=== PATIENT | female | born 1995 | race Caucasian/White ===

== ENCOUNTER 2017-04-07 14:24 | Emergency (ER) | payer BC ==
[2017-04-07 14:50] VITALS: BP 107/58
--- NOTE | 2017-04-07 15:28 | EDM.PDOC ---
ED HPI GENERAL MEDICAL PROBLEM - General Chief Complaint: Genitourinary Problem Stated Complaint: BLADDER INFECTION Time Seen by Provider: 04/07/17 15:15 Source of Information: Reports: Patient History Limitations: Reports: No limitations - History of Present Illness INITIAL COMMENTS - FREE TEXT/NARRATIVE: HISTORY AND PHYSICAL: History of present illness: [Patient comes to emergency room complaining of urinary frequency and burning with urination. Her symptoms have been going on for the past one day. She has had low back discomfort bilaterally with radiation around to her lower abdomen. this started 3 days ago and has gradually improved. States that her pain was severe several days ago. Is significantly improved now. Denies back pain at this time. Admits to discomfort over her suprapubic area which also began this morning. she's been pushing fluids which she believes is contributing to her urinary frequency. She's not had any fever or chills. No decreased appetite nausea or vomiting. She has not noticed any blood in her urine. She does not have regular periods because she has an IUD. Denies any new sexual partners. No unusual vaginal discharge. She's not taken any medications for her symptoms. She admits to a history of frequent urinary tract infections and states that her current symptoms are just like previous UTI symptoms.] Review of systems: As per history of present illness and below otherwise all systems reviewed and negative. Past medical history: As per history of present illness and as reviewed below otherwise noncontributory. Surgical history: As per history of present illness and as reviewed below otherwise noncontributory. Social history: No reported history of drug or alcohol abuse. Family history: As per history of present illness and as reviewed below otherwise noncontributory. Physical exam: HEENT: Atraumatic, normocephalic. mucous membranes moist. Lungs: Clear to auscultation, breath sounds equal bilaterally, chest nontender. Heart: S1S2, regular, negative for clicks, rubs. Abdomen: Soft, nondistended. Tender with palpation over suprapubic area. Negative for costovertebral tenderness. No guarding masses or rebound. Pelvis: Stable nontender. Genitourinary: Deferred. Rectal: Deferred. Extremities: Atraumatic, no swelling. Neurovascular unremarkable. Neuro: Awake, alert, oriented. Motor and sensory unremarkable throughout. Exam nonfocal. Diagnostics: [Urinalysis] Impression: [Dysuria] Plan: [Discussed with patient that her urinalysis showed only a large amount of blood and does not indicate infection. Recommended patient have a CT scan for kidney stone for appropriate diagnosis. She declined stating that she is a single mom and she can't afford a CT scan. She requests an antibiotic stating that her current symptoms feel just like previous UTIs. We discussed options of CT versus not, antibiotic treatment versus. Patient would like to take the antibiotic for one week and states that she will followup in the emergency room if her symptoms are worsening or not improving. Discussed with patient that this is not an unreasonable plan. Will treat with Bactrim DS twice a day for 7 days. Encouraged her to followup with local primary care provider. She is in agreement with today's plan all of her questions are answered and concerns are addressed.] Definitive disposition and diagnosis as appropriate pending reevaluation and review of above. bladder and lower abdomen Pain Score (Numeric/FACES): 6 - Related Data Allergies Allergy/AdvReac Type Severity Reaction Status Date / Time No Known Allergies Allergy Verified 04/08/15 17:05 Home Meds: Home Meds Ethinyl Estradiol/Drospirenone [Ocella 3 MG-0.03 MG] 1 tab PO DAILY 04/08/15 [ History] Sulfamethoxazole/Trimethoprim [Bactrim Ds Tablet] 1 each PO BID #14 tablet 04/07 [Rx] Past Medical History [employer] History: Reports: - Past Surgical History Female Surgical History: Reports: section Social & Family History - Family History Family Medical History: Noncontributory - Tobacco Use Smoking Status *Q: Never Smoker Second Hand Smoke Exposure: No - Caffeine Use Caffeine Use: Reports: Coffee Other Caffeine Use: 3-4 cups per day - Recreational Drug Use Recreational Drug Use: No ED ROS GENERAL - Review of Systems Review Of Systems: ROS reveals no pertinent complaints other than HPI. ED EXAM, RENAL/ - Physical Exam Exam: See Below Course - Vital Signs Last Recorded V/S: Last Vital Signs Temp 97.6 F 04/07/17 14:44 Pulse 64 04/07/17 14:44 Resp 16 04/07/17 14:44 BP 107/58 L 04/07/17 14:44 Pulse Ox 98 04/07/17 14:44 - Orders/Labs/Meds Labs: Laboratory Tests 04/07/17 Range/Units 14:40 Urine Color YELLOW Urine Appearance CLEAR Urine pH 6.0 (5.0-8.0) Ur Specific [place] <= 1.005 (1.001-1.035) Urine Protein NEGATIVE (NEGATIVE) mg/dL Urine Glucose (UA) NEGATIVE (NEGATIVE) mg/dL Urine Ketones NEGATIVE (NEGATIVE) mg/dL Urine Occult Blood LARGE H (NEGATIVE) Urine Nitrite NEGATIVE (NEGATIVE) Urine Bilirubin NEGATIVE (NEGATIVE) Urine Urobilinogen 0.2 (<2.0) EU/dL Ur Leukocyte Esterase NEGATIVE (NEGATIVE) Urine RBC 4-5 (0-2/HPF) Urine WBC 0-1 (0-5/HPF) Ur Epithelial Cells RARE (NONE-FEW) Amorphous Sediment FEW (NEGATIVE) Urine Bacteria RARE (NEGATIVE) Departure - Departure Time of Disposition: 15:30 Disposition: Home, Self-Care 01 Condition: good Clinical Impression: UTI, Urinary tract infectious disease - Discharge Information Prescriptions: Sulfamethoxazole/Trimethoprim [Bactrim Ds Tablet] 1 each PO BID #14 tablet Instructions: Urinary Tract Infection, Adult Referrals: PCP,None [Primary Care Provider] - Forms: ED Department Discharge Additional Instructions: The following information is given to patients seen in the emergency department who are being discharged to home. This information is to outline your options for follow-up care. We provide all patients seen in our emergency department with a follow-up referral. The need for follow-up, as well as the timing and circumstances, are variable depending upon the specifics of your emergency department visit. If you don't have a primary care physician on staff, we will provide you with a referral. We always advise you to contact your personal physician following an emergency department visit to inform them of the circumstance of the visit and for follow-up with them and/or the need for any referrals to a consulting specialist. The emergency department will also refer you to a specialist when appropriate. This referral assures that you have the opportunity for follow-up care with a specialist. All of these measure are taken in an effort to provide you with optimal care, which includes your follow-up. Under all circumstances we always encourage you to contact your private physician who remains a resource for coordinating your care. When calling for follow-up care, please make the office aware that this follow-up is from your recent emergency room visit. If for any reason you are refused follow-up, please contact the [facility] emergency department at and asked to speak to the emergency department charge nurse. [facility] [address] [place] [id number] Establish care with a local primary care provider at the clinic listed above. Followup in 48-72 hours. Your prescription has been sent to your pharmacy. Take antibiotics as prescribed. Push fluids. Return to ER as needed as discussed.
== END 2017-04-07 15:50 | disposition home or self-care (01) ==
LOC: MERGE 14:24 → MW.ED 14:24
DX: N39.0 Urinary tract infection, site not specified (principal); Z79.899 Other long term (current) drug therapy
CPT/HCPCS: 81001; 99283

== ENCOUNTER → 2017-04-09 | Outpatient (CLI) | payer BC | LOC: MW.CHFP 15:51 | PROVIDERS: ATTEND Physician Assistant | DX: R10.2 Pelvic and perineal pain (principal); R30.0 Dysuria | CPT/HCPCS: 81001; 87086; 87480; 87491; 87510; 87591; 87660 ==

== ENCOUNTER 2017-05-05 08:43 | Emergency (ER) | payer BC ==
[2017-05-05] MEDS ORDERED: Ibuprofen 600 MG Tab PO ONE (09:06)
--- NOTE | 2017-05-05 09:25 | EDM.PDOC ---
ED HPI GENERAL MEDICAL PROBLEM - General Chief Complaint: ENT Problem Stated Complaint: SORE THROAT Time Seen by Provider: 05/05/17 08:47 Source of Information: Reports: Patient History Limitations: Reports: No Limitations - History of Present Illness INITIAL COMMENTS - FREE TEXT/NARRATIVE: History of present illness: [] Patient developed sore throat yesterday that has progressed rapidly. She has pain with swallowing is tolerating food and fluids. She denies having any fevers but states she has felt chilled. She also has ear pain at this time denies any cough, congestion, rash or chest pain. Review of systems: As per history of present illness and below otherwise all systems reviewed and negative. Past medical history: As per history of present illness and as reviewed below otherwise noncontributory. Surgical history: As per history of present illness and as reviewed below otherwise noncontributory. Social history: No reported history of drug or alcohol abuse. Family history: As per history of present illness and as reviewed below otherwise noncontributory. Physical exam: General: Well developed, well nourished in NAD HEENT: Atraumatic, normocephalic, pupils reactive, negative for conjunctival pallor or scleral icterus, mucous membranes moist, throat erythematous, no exudate, neck supple, nontender, trachea midline. No stridor Lungs: Clear to auscultation, breath sounds equal bilaterally, chest nontender. Heart: S1S2, regular, negative for clicks, rubs, or JVD. Abdomen: Soft, nondistended, nontender. Negative for masses or hepatosplenomegaly. Negative for costovertebral tenderness. Pelvis: Stable nontender. Genitourinary: Deferred. Rectal: Deferred. Extremities: Atraumatic, negative for cords or calf pain. Neurovascular unremarkable. Neuro: Awake, alert, oriented. Cranial nerves II through XII unremarkable. Cerebellum unremarkable. Motor and sensory unremarkable throughout. Exam nonfocal. Diagnostics: [] Rapid strep negative Therapeutics: [] Motrin for pain Impression: [] Acute pharyngitis Plan: [] Motrin for pain followup with PMD return if symptoms worsen Definitive disposition and diagnosis as appropriate pending reevaluation and review of above. Throat Pain Score (Numeric/FACES): 8 - Related Data Allergies Allergy/AdvReac Type Severity Reaction Status Date / Time No Known Allergies Allergy Verified 05/05/17 08:51 Home Meds: Home Meds . [No Known Home Meds] 05/05/17 [History] Past Medical History HEENT History: Reports: None Cardiovascular History: Reports: None Respiratory History: Reports: None Gastrointestinal History: Reports: None Genitourinary History: Reports: None AIR MARSHAL History: Reports: Musculoskeletal History: Reports: None Neurological History: Reports: None Psychiatric History: Reports: None Endocrine/Metabolic History: Reports: None Hematologic History: Reports: None Immunologic History: Reports: None Oncologic (Cancer) History: Reports: None Dermatologic History: Reports: None - Infectious Disease History Infectious Disease History: Reports: None - Past Surgical History Head Surgeries/Procedures: Reports: None HEENT Surgical History: Reports: None Cardiovascular Surgical History: Reports: None Respiratory Surgical History: Reports: None GI Surgical History: Reports: Appendectomy Female Surgical History: Reports: Breast Biopsy, Section Endocrine Surgical History: Reports: None Neurological Surgical History: Reports: None Musculoskeletal Surgical History: Reports: None Oncologic Surgical History: Reports: None Dermatological Surgical History: Reports: None Social & Family History - Family History Family Medical History: Noncontributory - Tobacco Use Smoking Status *Q: Never Smoker Second Hand Smoke Exposure: No - Caffeine Use Caffeine Use: Reports: None Other Caffeine Use: 3-4 cups per day - Alcohol Use Days Per Week of Alcohol Use: 0 - Recreational Drug Use Recreational Drug Use: No ED ROS ENT - Review of Systems Review Of Systems: See Below (See history of present illness) ED EXAM, ENT - Physical Exam Exam: See Below (See history of present illness see history of present illness) Course - Vital Signs Last Recorded V/S: Last Vital Signs Temp 36.6 C 05/05/17 08:46 Pulse 99 05/05/17 08:46 Resp 16 05/05/17 08:46 BP 129/72 05/05/17 08:46 Pulse Ox 99 05/05/17 08:46 - Orders/Labs/Meds Orders: Active Orders 24 hr Category Date Time Status CULTURE STREP A CONFIRMATION [RM] Stat Lab 05/05/17 08:59 Results STREP SCRN A RAPID W CULT CONF [RM] Stat Lab 05/05/17 08:59 Results Meds: Medications Discontinued Medications Generic Name Dose Route Start Last Admin Trade Name Freq PRN Reason Stop Dose Admin Ibuprofen 600 mg 05/05/17 09:06 05/05/17 09:18 Motrin PO 05/05/17 09:07 600 mg ONETIME ONE Administration Departure - Departure Time of Disposition: 09:24 Disposition: Home, Self-Care 01 Condition: good Clinical Impression: Acute pharyngitis Qualifiers: Pharyngitis/tonsillitis etiology: unspecified etiology Qualified Code(s): J02.9 - Acute pharyngitis, unspecified - Discharge Information Forms: ED Department Discharge Additional Instructions: The following information is given to patients seen in the emergency department who are being discharged to home. This information is to outline your options for follow-up care. We provide all patients seen in our emergency department with a follow-up referral. The need for follow-up, as well as the timing and circumstances, are variable depending upon the specifics of your emergency department visit. If you don't have a primary care physician on staff, we will provide you with a referral. We always advise you to contact your personal physician following an emergency department visit to inform them of the circumstance of the visit and for follow-up with them and/or the need for any referrals to a consulting specialist. The emergency department will also refer you to a specialist when appropriate. This referral assures that you have the opportunity for follow-up care with a specialist. All of these measure are taken in an effort to provide you with optimal care, which includes your follow-up. Under all circumstances we always encourage you to contact your private physician who remains a resource for coordinating your care. When calling for follow-up care, please make the office aware that this follow-up is from your recent emergency room visit. If for any reason you are refused follow-up, please contact the [facility] Emergency Department at and asked to speak to the emergency department charge nurse. Motrin or Tylenol for pain. Follow up PMD return here if any symptoms worsen or change. [facility] [address] [place] [id number] - My Orders Last 24 Hours: My Active Orders 05/05/17 08:59 CULTURE STREP A CONFIRMATION [] Stat STREP SCRN A RAPID W CULT CONF [RM] Stat - Assessment/Plan Last 24 Hours: My Active Orders 05/05/17 08:59 CULTURE STREP A CONFIRMATION [RM] Stat STREP SCRN A RAPID W CULT CONF [RM] Stat
[2017-05-05 09:35] VITALS: BP 118/66
== END 2017-05-05 09:33 | disposition home or self-care (01) ==
LOC: MW.ED 08:43
DX: J02.9 Acute pharyngitis, unspecified (principal); Z90.49 Acquired absence of other specified parts of digestive tract
CPT/HCPCS: 87081; 87880; 99283; A9270; 99282

== ENCOUNTER 2018-07-18 16:31 | Emergency (ER) | payer BC, MEDICAID ==
--- NOTE | 2018-07-18 16:40 | EDM.PDOC ---
ED HPI GENERAL MEDICAL PROBLEM - General Stated Complaint: THINKS SHE IS MISCARRYING Time Seen by Provider: 07/18/18 16:36 Source of Information: Reports: Patient History Limitations: Reports: No Limitations - History of Present Illness INITIAL COMMENTS - FREE TEXT/NARRATIVE: HISTORY AND PHYSICAL: History of present illness: Patient is a 22-year-old female who presents to the emergency room with complaints of vaginal bleeding during . She states she had gone to her regular OB appointment with Leslee Gordon this morning, had no complaints at that time. Prior to arrival she said she "felt like my water broke" and did have a gush of blood from the vagina. She has dull cramping to the low pelvis and nausea. Denies any fever, chills, chest pain, shortness of breath or cough. Denies any abdominal pain, vomiting, diarrhea, constipation or dysuria. LMP: April 25, 2018. , P:2 (previous miscarriages early ). Review of systems: As per history of present illness and below otherwise all systems reviewed and negative. Past medical history: As per history of present illness and as reviewed below otherwise noncontributory. Surgical history: As per history of present illness and as reviewed below otherwise noncontributory. Social history: No reported history of drug or alcohol abuse. Family history: As per history of present illness and as reviewed below otherwise noncontributory. Physical exam: General: Well-developed and well-nourished 22-year-old female. Alert and oriented. Nontoxic appearing and in no acute distress. HEENT: Atraumatic, normocephalic, pupils equal and reactive bilaterally, negative for conjunctival pallor or scleral icterus, mucous membranes moist, throat clear, neck supple, nontender, trachea midline. No drooling or trismus noted. No meningeal signs Lungs: Clear to auscultation, breath sounds equal bilaterally, chest nontender. Heart: S1S2, regular rate and rhythm without overt murmur Abdomen: Soft, nondistended, mild suprapubic discomfort with palpation. Negative for masses or hepatosplenomegaly. Negative for costovertebral tenderness. Pelvis: Stable nontender. Genitourinary: Deferred. Rectal: Deferred. Skin: Intact, warm, dry. No lesions or rashes noted. Extremities: Atraumatic, moves all extremities per self, negative for cords or calf pain. Neurovascular unremarkable. Neuro: Awake, alert, oriented. Cranial nerves II through XII unremarkable. Cerebellum unremarkable. Motor and sensory unremarkable throughout. Exam nonfocal. Notes: Patient did see the nurse creative specialist this morning for routine OB appointment. During that time they did some labs. A POSITIVE blood type. UA is within normal limits, will not re-run an urinalysis at this time. Initially patient was offered Zofran and Tylenol for her symptoms. She declined. After the ultrasound she would like the Tylenol/Zofran. Lab work is unremarkable. Quant HCG 68,981. OB ultrasound shows a single IUP with a estimated gestational age of 12 weeks and 4 days. Does note a large subchorionic hemorrhage. Leslee Gordon was paged. She is informed of the patient's presentation to the ER along with the ultrasound reading. Diagnostics: CBC, CMP, Quant HCG, OB ultrasounds Therapeutics: Declines Prescription: None Impression: Threatened miscarriage Plan: 1. Pelvic rest until cleared by your OBGYN (no sex, tampons, etc...) 2. Tylenol as needed for pain. 3. Follow up with Leslee Diasd tomorrow. You will need a repeat Quantitative HCG done. Return to the ED as needed as discussed. Definitive disposition and diagnosis as appropriate pending reevaluation and review of above. - Related Data Allergies Allergy/AdvReac Type Severity Reaction Status Date / Time No Known Allergies Allergy Verified 07/18/18 16:42 Home Meds: Home Meds Vit #108/Iron/FA [ One Tablet] 1 tab PO DAILY 07/18/18 [History ] Past Medical History HEENT History: Reports: None Cardiovascular History: Reports: None Respiratory History: Reports: None Gastrointestinal History: Reports: None Genitourinary History: Reports: None CHECK CASHIER History: Reports: Musculoskeletal History: Reports: None Neurological History: Reports: None Psychiatric History: Reports: None Endocrine/Metabolic History: Reports: None Hematologic History: Reports: None Immunologic History: Reports: None Oncologic (Cancer) History: Reports: None Dermatologic History: Reports: None - Infectious Disease History Infectious Disease History: Reports: None - Past Surgical History Head Surgeries/Procedures: Reports: None HEENT Surgical History: Reports: None Cardiovascular Surgical History: Reports: None Respiratory Surgical History: Reports: None GI Surgical History: Reports: Appendectomy Female Surgical History: Reports: Breast Biopsy, Section Endocrine Surgical History: Reports: None Neurological Surgical History: Reports: None Musculoskeletal Surgical History: Reports: None Oncologic Surgical History: Reports: None Dermatological Surgical History: Reports: None Social & Family History - Family History Family Medical History: Noncontributory - Caffeine Use Caffeine Use: Reports: None Other Caffeine Use: 3-4 cups per day ED ROS GENERAL - Review of Systems Review Of Systems: ROS reveals no pertinent complaints other than HPI. ED EXAM - Physical Exam Exam: See Below (See dictation) Course - Vital Signs Last Recorded V/S: Last Vital Signs Temp 98.0 F 07/18/18 16:39 Pulse 126 H 07/18/18 16:39 Resp 18 07/18/18 16:39 BP 149/80 H 07/18/18 16:39 Pulse Ox 95 07/18/18 16:39 - Orders/Labs/Meds Labs: Laboratory Tests 07/18/18 07/18/18 07/18/18 Range/Units 16:45 16:45 16:45 WBC 9.95 (4.0-11.0) K/uL RBC 4.94 (4.30-5.90) M/uL Hgb 14.4 (12.0-16.0) g/dL Hct 40.9 (36.0-46.0) % MCV 82.8 (80.0-98.0) fL MCH 29.1 (27.0-32.0) pg MCHC 35.2 (31.0-37.0) g/dL RDW Std Deviation 38.0 (28.0-62.0) fl RDW Coeff of Chantell 13 (11.0-15.0) % Plt Count 220 (150-400) K/uL MPV 9.60 (7.40-12.00) fL Neut % (Auto) 72.4 (48.0-80.0) % Lymph % (Auto) 14.6 L (16.0-40.0) % Nuckolls % (Auto) 11.3 (0.0-15.0) % Eos % (Auto) 1.5 (0.0-7.0) % Baso % (Auto) 0.2 (0.0-1.5) % Neut # (Auto) 7.2 H (1.4-5.7) K/uL Lymph # (Auto) 1.5 (0.6-2.4) K/uL Nuckolls # (Auto) 1.1 H (0.0-0.8) K/uL Eos # (Auto) 0.2 (0.0-0.7) K/uL Baso # (Auto) 0.0 (0.0-0.1) K/uL Nucleated RBC % 0.0 /100WBC Nucleated RBCs # 0 K/uL Sodium 136 (136-145) mmol/L Potassium 3.5 (3.5-5.1) mmol/L Chloride 103 (98-107) mmol/L Carbon Dioxide 22.1 (21.0-32.0) mmol/L BUN 8 (7.0-18.0) mg/dL Creatinine 0.6 (0.6-1.0) mg/dL Est Cr Clr Drug Dosing 132.34 mL/min Estimated GFR (MDRD) > 60.0 ml/min Glucose 107 H (74-106) mg/dL Calcium 10.4 H (8.5-10.1) mg/dL Total Bilirubin 0.3 (0.2-1.0) mg/dL AST 16 (15-37) IU/L ALT 26 (14-63) IU/L Alkaline Phosphatase 69 (46-116) U/L Total Protein 7.7 (6.4-8.2) g/dL Albumin 3.5 (3.4-5.0) g/dL Globulin 4.2 H (2.0-3.5) g/dL Albumin/Globulin Ratio 0.8 L (1.3-2.8) HCG, Quant 62934.0 mIU/mL Meds: Medications Discontinued Medications Generic Name Dose Route Start Last Admin Trade Name Freq PRN Reason Stop Dose Admin Acetaminophen 1,000 mg 07/18/18 17:42 07/18/18 17:48 Tylenol Extra Strength PO 07/18/18 17:43 1,000 mg ONETIME ONE Administration Ondansetron HCl 4 mg 07/18/18 17:51 07/18/18 17:54 Zofran Odt PO 07/18/18 17:52 4 mg ONETIME ONE Administration Departure - Departure Time of Disposition: 18:04 Disposition: Home, Self-Care 01 Clinical Impression: Threatened miscarriage - Discharge Information Instructions: Threatened Miscarriage, Aeks-[id number] Referrals: PCP,None [Primary Care Provider] - Forms: ED Department Discharge Additional Instructions: The following information is given to patients seen in the emergency department who are being discharged to home. This information is to outline your options for follow-up care. We provide all patients seen in our emergency department with a follow-up referral. The need for follow-up, as well as the timing and circumstances, are variable depending upon the specifics of your emergency department visit. If you don't have a primary care physician on staff, we will provide you with a referral. We always advise you to contact your personal physician following an emergency department visit to inform them of the circumstance of the visit and for follow-up with them and/or the need for any referrals to a consulting specialist. The emergency department will also refer you to a specialist when appropriate. This referral assures that you have the opportunity for follow-up care with a specialist. All of these measure are taken in an effort to provide you with optimal care, which includes your follow-up. Under all circumstances we always encourage you to contact your private physician who remains a resource for coordinating your care. When calling for follow-up care, please make the office aware that this follow-up is from your recent emergency room visit. If for any reason you are refused follow-up, please contact the [facility] Emergency Department at and asked to speak to the emergency department charge nurse. [facility] [address] [place] [phone] 1. Pelvic rest until cleared by your OBGYN (no sex, tampons, etc...) 2. Tylenol as needed for pain. 3. Follow up with Leslee Gordon tomorrow. You will need a repeat Quantitative HCG done. Return to the ED as needed as discussed.
[2018-07-18 16:45] VITALS: BP 149/80
[2018-07-18 17:36] LABS: CHLORIDE,CL 103 mmol/L (98-107); SODIUM,NA 136 mmol/L (136-145)
[2018-07-18] MEDS ORDERED: Acetaminophen 500 MG Tab PO ONE (17:42)
[2018-07-18] MEDS ORDERED: Ondansetron 4 MG Tab.DIS PO ONE (17:51)
--- NOTE | 2018-07-18 18:27 | US ---
EXAM DATE: 07/18/18 PATIENT'S AGE: 22 Patient: JOE OLIVARES Facility: [place], [place] Site . Site : 1995 Study: US OB Pelvis [id number] 5:13:53 PM Ordering Physician: Doctor Coon Final Report: HISTORY: Vaginal bleeding and . TECHNIQUE: Transabdominal obstetrical ultrasound. COMPARISON: None. FINDINGS: Single intrauterine gestation. [place]-rump length of 6.1 cm corresponds to estimated gestational age 12 weeks 4 days. cardiac activity is present with heart rate 161-163 beats per minute. Perigestational collection measuring 6.4 x 5.7 x 7.5 cm with diffuse low level internal echoes. Within the central aspect of this collection is a hyperechoic 2.7 x 1.9 x 1.5 cm focus. No color Doppler signal within this collection. IMPRESSION: 1. Single live intrauterine gestation with estimated gestational age 12 weeks 4 days. 2. Large subchorionic hemorrhage. Dictated by Louis Vizcaino MD @ Jul 18 2018 5:42PM (Electronic Signature) Report Signed by Proxy. NILAY
== END 2018-07-18 18:30 | disposition home or self-care (01) ==
LOC: MW.ED 16:31
DX: O20.0 Threatened abortion (principal)
CPT/HCPCS: 36415; 76801; 80053; 84702; 85025; 99284; A9270; 99283

== ENCOUNTER 2018-09-03 17:20 | Emergency (ER) | payer BC, MEDICAID ==
--- NOTE | 2018-09-03 17:50 | EDM.PDOC ---
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 She states she fell yesterday onto her right hip which is walking outside in the slow and slipped. She states yesterday she felt achy but today started developing pelvic cramping. She denies any vaginal bleeding or discharge. She denies any chest pain, SOB, fevers, chills, dysuria. She states it feels similar to how she felt before her water broke with her previous . Review of systems: As per history of present illness and below otherwise all systems reviewed and negative. Past medical history: As per history of present illness and as reviewed below otherwise noncontributory. Surgical history: As per history of present illness and as reviewed below otherwise noncontributory. Social history: No reported history of drug or alcohol abuse. Family history: As per history of present illness and as reviewed below otherwise noncontributory. Physical exam: General: Patient sitting comfortably in no acute distress and nontoxic appearing HEENT: Atraumatic, normocephalic, pupils reactive, negative for conjunctival pallor or scleral icterus, mucous membranes moist, throat clear, neck supple, nontender, trachea midline. No meningeal signs. Lungs: Clear to auscultation, breath sounds equal bilaterally, chest nontender. Heart: S1S2, regular, negative for clicks, rubs, or overt murmur. Abdomen: Soft, nondistended, nontender. Negative for masses or hepatosplenomegaly. Negative for costovertebral tenderness. Pelvis: Stable nontender. Genitourinary: cervical os is closed, no cervical motion tenderness. No vaginal bleeding noted. Rectal: Deferred. Extremities: Atraumatic, negative for cords or calf pain. Neurovascular unremarkable. Neuro: Awake, alert, oriented. Cranial nerves II through XII unremarkable. Cerebellum unremarkable. Motor and sensory unremarkable throughout. Exam nonfocal. Notes: Discussed results with her OB Leslee Gordon. She will follow up with patient in the clinic on Mic morning. Diagnostics: CBC, serum quant, US Therapeutics: None Prescriptions: None Impression: Pelvic pain in Plan: 1. Pelvic rest and tylenol as needed for pain 2. Follow up with OB, please call Wednesday to schedule this appointment 3. Return to ED as needed as discussed Definitive disposition and diagnosis as appropriate pending reevaluation and review of above. 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 History: benign cyst removed from R breast Musculoskeletal History: Reports: None Neurological History: Reports: None Psychiatric History: Reports: None Endocrine/Metabolic History: Reports: None Hematologic History: Reports: None Immunologic History: Reports: None Oncologic (Cancer) History: Reports: None Dermatologic History: Reports: None - Infectious Disease History Infectious Disease History: Reports: None - Past Surgical History Head Surgeries/Procedures: Reports: None HEENT Surgical History: Reports: None Cardiovascular Surgical History: Reports: None Respiratory Surgical History: Reports: None GI Surgical History: Reports: Appendectomy Female Surgical History: Reports: Breast Biopsy, Section Endocrine Surgical History: Reports: None Neurological Surgical History: Reports: None Musculoskeletal Surgical History: Reports: None Oncologic Surgical History: Reports: None Dermatological Surgical History: Reports: None Social & Family History - Family History Family Medical History: Noncontributory - Caffeine Use Caffeine Use: Reports: None Other Caffeine Use: 3-4 cups per day ED ROS GENERAL - Review of Systems Review Of Systems: ROS reveals no pertinent complaints other than HPI. ED EXAM - Physical Exam Exam: See Below (see dictation) Course - Vital Signs Last Recorded V/S: Last Vital Signs Temp 37.0 C 09/03/18 17:53 Pulse 93 09/03/18 17:53 Resp 16 09/03/18 17:53 BP 113/77 09/03/18 17:53 Pulse Ox 97 09/03/18 17:53 - Orders/Labs/Meds Orders: Active Orders 24 hr Category Date Time Status OB Ltd 1 or More Fetus [US] Routine Exams 09/03/18 Taken OB Transvaginal [US] Stat Exams 09/03/18 17:48 Taken CULTURE URINE [RM] Stat Lab 09/03/18 18:05 Received Labs: Laboratory Tests 09/03/18 09/03/18 09/03/18 Range/Units 17:57 17:57 18:05 WBC 12.47 H (4.0-11.0) K/uL RBC 4.54 (4.30-5.90) M/uL Hgb 13.1 (12.0-16.0) g/dL Hct 38.4 (36.0-46.0) % MCV 84.6 (80.0-98.0) fL MCH 28.9 (27.0-32.0) pg MCHC 34.1 (31.0-37.0) g/dL RDW Std Deviation 40.5 (28.0-62.0) fl RDW Coeff of [place] 13 (11.0-15.0) % Plt Count 216 (150-400) K/uL MPV 9.90 (7.40-12.00) fL Neut % (Auto) 75.9 (48.0-80.0) % Lymph % (Auto) 15.3 L (16.0-40.0) % [place] % (Auto) 8.1 (0.0-15.0) % Eos % (Auto) 0.6 (0.0-7.0) % Baso % (Auto) 0.1 (0.0-1.5) % Neut # (Auto) 9.5 H (1.4-5.7) K/uL Lymph # (Auto) 1.9 (0.6-2.4) K/uL [place] # (Auto) 1.0 H (0.0-0.8) K/uL Eos # (Auto) 0.1 (0.0-0.7) K/uL Baso # (Auto) 0.0 (0.0-0.1) K/uL Nucleated RBC % 0.0 /100WBC Nucleated RBCs # 0 K/uL HCG, Quant 62397.0 mIU/mL Urine Color YELLOW Urine Appearance CLEAR Urine pH 7.5 (5.0-8.0) Ur Specific [place] 1.020 (1.001-1.035) Urine Protein NEGATIVE (NEGATIVE) mg/dL Urine Glucose (UA) NEGATIVE (NEGATIVE) mg/dL Urine Ketones NEGATIVE (NEGATIVE) mg/dL Urine Occult Blood NEGATIVE (NEGATIVE) Urine Nitrite NEGATIVE (NEGATIVE) Urine Bilirubin NEGATIVE (NEGATIVE) Urine Urobilinogen 0.2 (<2.0) EU/dL Ur Leukocyte Esterase NEGATIVE (NEGATIVE) Urine RBC 0-1 (0-2/HPF) Urine WBC 1-3 (0-5/HPF) Ur Epithelial Cells OCCASIONAL (NONE-FEW) Urine Bacteria FEW (NEGATIVE) Urine Mucus RARE (NONE-MOD) Departure - Departure Time of Disposition: 19:25 Disposition: Home, Self-Care 01 Condition: Good Clinical Impression: Pelvic pain affecting - Discharge Information Referrals: Inna Kline NP [Primary Care Provider] - Forms: ED Department Discharge Additional Instructions: The following information is given to patients seen in the emergency department who are being discharged to home. This information is to outline your options for follow-up care. We provide all patients seen in our emergency department with a follow-up referral. The need for follow-up, as well as the timing and circumstances, are variable depending upon the specifics of your emergency department visit. If you don't have a primary care physician on staff, we will provide you with a referral. We always advise you to contact your personal physician following an emergency department visit to inform them of the circumstance of the visit and for follow-up with them and/or the need for any referrals to a consulting specialist. The emergency department will also refer you to a specialist when appropriate. This referral assures that you have the opportunity for follow-up care with a specialist. All of these measure are taken in an effort to provide you with optimal care, which includes your follow-up. Under all circumstances we always encourage you to contact your private physician who remains a resource for coordinating your care. When calling for follow-up care, please make the office aware that this follow-up is from your recent emergency room visit. If for any reason you are refused follow-up, please contact the [facility] Emergency Department at and asked to speak to the emergency department charge nurse. [facility] [address] [address] 1. Pelvic rest and tylenol as needed for pain 2. Follow up with OB, please call Wednesday morning to schedule this appointment 3. Return to ED as needed as discussed - My Orders Last 24 Hours: My Active Orders 09/03/18 17:48 OB Transvaginal [US] Stat 09/03/18 18:05 CULTURE URINE [RM] Stat - Assessment/Plan Last 24 Hours: My Active Orders 09/03/18 17:48 OB Transvaginal [US] Stat 09/03/18 18:05 CULTURE URINE [RM] Stat
[2018-09-03 19:35] VITALS: BP 110/63
--- NOTE | 2018-09-05 14:25 | US ---
EXAM DATE: 09/03/18 PATIENT'S AGE: 23 Patient: JOE OLIVARES Facility: [place], [place] Site . Site : 1995 Study: US OB Pelvis [id number] 6:58:30 PM Ordering Physician: Doctor Coon Final Report: INDICATION: PT FELL 09/02/18 HISTORY: Recent fall. Large subchorionic hemorrhage on prior ultrasound. COMPARISON: obstetric ultrasound 07/18/2018. TECHNIQUE: obstetric ultrasound. Findings: Transabdominal and endovaginal imaging of the pelvis was obtained. Endovaginal imaging of the pelvis was obtained to better evaluate the adnexa and endometrial complex. There is a single living intrauterine fetus. Presentation is currently breech. There is a posterior placenta. No placenta previa is identified. Subjectively, amniotic fluid volume is within normal limits. Cardiac activity by M-mode ultrasound is 154 beats per minute. The cervix appears closed, measuring 4.1 cm in length. There is no prolapse of parts or funneling. There is a mixed echogenicity mass present adjacent to the lower uterine segment which measures 6.2 x 3.9 x 5.5 cm. This is compatible with a perigestational hematoma. Finding was present on the prior study from 07/18/2018. Measurements are as follows: Biparietal diameter: 44 mm, corresponding to a gestational age of 19 weeks, 3 days. Head circumference: 165 mm, corresponding to a gestational age of 19 weeks, 2 days. Abdominal circumference: 152 mm, corresponding to a gestational age of 20 weeks , 3 days. Femur length: 30 mm, corresponding to a gestational age of 19 weeks, 1 day. The HC/AC ratio is 1.09. The normal range is 1.07 to 1.29. Estimated weight is 309 g (+/- 45 g). This places the fetus at the 90th percentile per LMP. The ultrasound gestational age today is 19 weeks, 4 days, corresponding to an ultrasound ALIREZA of 01/24/2019. IMPRESSION: 1. Single living intrauterine fetus, with an ultrasound gestational age today of 19 weeks, 4 days, corresponding to an ultrasound ALIREZA of 01/24/2019. 2. Mixed echogenicity collection adjacent to the lower uterine segment, without blood flow. This compatible with a perigestational hematoma, and similar findings were present on the study from 07/18/2018. On the comparison study from 07/18/2018, the collection measures 6.4 x 5.7 x 7.5 cm. 3. Clinical and sonographic follow-up are advised for these findings. 4. There is no retroplacental hematoma identified on grayscale images. Dictated by Fawad Alejandre MD @ 09/03/2018 7:16:08 PM Dictated by: Fawad Alejandre MD @ 09/03/2018 19:16:20 (Electronic Signature) Report Signed by Proxy. NILAY
--- NOTE | 2018-09-05 14:26 | US ---
EXAM DATE: 09/03/18 PATIENT'S AGE: 23 Patient: JOE OLIVARES Facility: [place], [place] Site . Site : 1995 Study: US OB Pelvis [id number] 6:58:30 PM Ordering Physician: Doctor Coon Final Report: INDICATION: PT FELL 09/02/18 HISTORY: Recent fall. Large subchorionic hemorrhage on prior ultrasound. COMPARISON: obstetric ultrasound 07/18/2018. TECHNIQUE: obstetric ultrasound. Findings: Transabdominal and endovaginal imaging of the pelvis was obtained. Endovaginal imaging of the pelvis was obtained to better evaluate the adnexa and endometrial complex. There is a single living intrauterine fetus. Presentation is currently breech. There is a posterior placenta. No placenta previa is identified. Subjectively, amniotic fluid volume is within normal limits. Cardiac activity by M-mode ultrasound is 154 beats per minute. The cervix appears closed, measuring 4.1 cm in length. There is no prolapse of parts or funneling. There is a mixed echogenicity mass present adjacent to the lower uterine segment which measures 6.2 x 3.9 x 5.5 cm. This is compatible with a perigestational hematoma. Finding was present on the prior study from 07/18/2018. Measurements are as follows: Biparietal diameter: 44 mm, corresponding to a gestational age of 19 weeks, 3 days. Head circumference: 165 mm, corresponding to a gestational age of 19 weeks, 2 days. Abdominal circumference: 152 mm, corresponding to a gestational age of 20 weeks , 3 days. Femur length: 30 mm, corresponding to a gestational age of 19 weeks, 1 day. The HC/AC ratio is 1.09. The normal range is 1.07 to 1.29. Estimated weight is 309 g (+/- 45 g). This places the fetus at the 90th percentile per LMP. The ultrasound gestational age today is 19 weeks, 4 days, corresponding to an ultrasound ALIREZA of 01/24/2019. IMPRESSION: 1. Single living intrauterine fetus, with an ultrasound gestational age today of 19 weeks, 4 days, corresponding to an ultrasound ALIREZA of 01/24/2019. 2. Mixed echogenicity collection adjacent to the lower uterine segment, without blood flow. This compatible with a perigestational hematoma, and similar findings were present on the study from 07/18/2018. On the comparison study from 07/18/2018, the collection measures 6.4 x 5.7 x 7.5 cm. 3. Clinical and sonographic follow-up are advised for these findings. 4. There is no retroplacental hematoma identified on grayscale images. Dictated by Fawad Alejandre MD @ 09/03/2018 7:16:08 PM Dictated by: Fawad Alejandre MD @ 09/03/2018 19:16:20 (Electronic Signature) Report Signed by Proxy. NILAY
== END 2018-09-03 19:35 | disposition home or self-care (01) ==
LOC: MW.ED 17:20
DX: O26.892 Other specified pregnancy related conditions, second trimester (principal); Z3A.19 19 weeks gestation of pregnancy
CPT/HCPCS: 36415; 76815; 76815-26; 76817; 76817-26; 81001; 84702; 85025; 87086; 99283; 99284-25

== ENCOUNTER 2018-09-03 23:41 | Emergency (ER) | payer MEDICAID ==
--- NOTE | 2018-09-04 00:02 | EDM.PDOC ---
ED HPI GENERAL MEDICAL PROBLEM - General Stated Complaint: 19 WEEKS PREG, CRAMPING, BLEEDING Time Seen by Provider: 09/03/18 23:58 - History of Present Illness INITIAL COMMENTS - FREE TEXT/NARRATIVE: HISTORY AND PHYSICAL: History of present illness: The patient is a 23-year-old female who is approximately 19 weeks 4days by an ultrasound that was just performed this evening, and who is a 3 para 2001, presents again for reevaluation for persistent cramping and now vaginal bleeding. Patient says that she was cramping earlier today but she did not have the bleeding and it just started this evening and she was concerned. She says that she had a subchorionic hemorrhage at 14 weeks gestational age and it lasted for a week but there was no cramping with that. She is worried and wants reevaluation. She has no flank pain and no urinary complaints no upper abdominal pain and her cramping is the entire lower pelvic area and does not localize right or left. She has not had a fever but is nauseated. She has had normal bowel movements and is eating and drinking normally. There is nothing new about the cramping but now with the new bleeding she wanted evaluation. SHe has been taking Tylenol all day and when the bleeding started late this evening she has not been bleeding heavily and has only used less than one pad. The patient's was seen here and discharge proximally 4 hours ago and had a CBC serum quantitative hCG UA pelvic ultrasound. I reviewed all those test results. Pelvic ultrasound revealed a single living intrauterine corresponding to 19 weeks 4 days and a good heart rate as well as normal amniotic fluid. There appear to be some mixed echogenicity in the lower uterine segment without blood flow compatible with a bimal-gestational hematoma and similar findings were present on a prior study from July 18. The placenta is posterior and there is no previa. Baby's heartbeat was 154 and cervix was closed. On physical exam on the prior visit he cervix was also closed and there was no bleeding. Leslee Novoa the patient's nurse civil engineering specialist was contacted about this case on the prior visit. Review of systems: As per history of present illness and below otherwise all systems reviewed and negative. Past medical history: As per history of present illness and as reviewed below otherwise noncontributory. Surgical history: As per history of present illness and as reviewed below otherwise noncontributory. Social history: No reported history of drug or alcohol abuse. Family history: As per history of present illness and as reviewed below otherwise noncontributory. Physical exam: General: Well-developed well-nourished female who is nontoxic and vital signs have been reviewed by me HEENT: Atraumatic, normocephalic, negative for conjunctival pallor or scleral icterus, mucous membranes moist, throat clear, neck supple, nontender, trachea midline. Lungs: Clear to auscultation, breath sounds equal bilaterally, chest nontender. Heart: S1S2, regular rate and rhythm no overt murmurs. Abdomen: Soft, nondistended, nontender. The patient has some diffuse lower pelvic discomfort with palpation which is bilateral and not localized and there is no rebound or guarding. Negative for masses or hepatosplenomegaly. Negative for costovertebral tenderness. Pelvis: Stable nontender. Genitourinary: External genitalia are within normal limits and there is a small amount of dark blood in the vault. The cervix is visually closed and there is no active bleeding process. Rectal: Deferred. Extremities: Atraumatic, negative for cords or calf pain. Neurovascular unremarkable. Neuro: Awake, alert, oriented. Cranial nerves II through XII unremarkable. Cerebellum unremarkable. Motor and sensory unremarkable throughout. Exam nonfocal. Diagnostics: CBC UA and Quant hCG as well as ultrasound performed earlier this evening were reviewed by me. The patient has unknown blood type of A+ from prior delivery here Therapeutics: Case was discussed with Leslee Novoa a second time at 0027. She recommends one dose of Stadol or Nubain here in the ED to help her get some rest and close follow-up in the clinic. Impression: Bimal-gestational hematoma/vaginal bleeding in second trimester stable , pelvic cramping Definitive disposition and diagnosis as appropriate pending reevaluation and review of above. 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 removed from R breast Musculoskeletal History: Reports: None Neurological History: Reports: None Psychiatric History: Reports: None Endocrine/Metabolic History: Reports: None Hematologic History: Reports: None Immunologic History: Reports: None Oncologic (Cancer) History: Reports: None Dermatologic History: Reports: None - Infectious Disease History Infectious Disease History: Reports: None - Past Surgical History Head Surgeries/Procedures: Reports: None HEENT Surgical History: Reports: None Cardiovascular Surgical History: Reports: None Respiratory Surgical History: Reports: None GI Surgical History: Reports: Appendectomy Female Surgical History: Reports: Breast Biopsy, Section Endocrine Surgical History: Reports: None Neurological Surgical History: Reports: None Musculoskeletal Surgical History: Reports: None Oncologic Surgical History: Reports: None Dermatological Surgical History: Reports: None Social & Family History - Family History Family Medical History: Noncontributory - Caffeine Use Caffeine Use: Reports: None Other Caffeine Use: 3-4 cups per day ED ROS GENERAL - Review of Systems Review Of Systems: ROS reveals no pertinent complaints other than HPI. ED EXAM, GENERAL - Physical Exam Exam: See Below (See dictation) Course - Vital Signs Last Recorded V/S: Last Vital Signs Temp 36.4 C 09/03/18 23:58 Pulse 104 H 09/03/18 23:58 Resp 18 09/03/18 23:58 BP 133/80 09/03/18 23:58 Pulse Ox 97 09/03/18 23:58 Departure - Departure Time of Disposition: 00:30 Disposition: Home, Self-Care 01 Condition: Good Clinical Impression: Vaginal bleeding during , antepartum Pelvic pain affecting Qualifiers: Trimester: second trimester Qualified Code(s): O26.892 - Other specified related conditions, second trimester; R10.2 - Pelvic and perineal pain - Discharge Information Referrals: Inna Kline NP [Primary Care Provider] - Additional Instructions: The following information is given to patients seen in the emergency department who are being discharged to home. This information is to outline your options for follow-up care. We provide all patients seen in our emergency department with a follow-up referral. The need for follow-up, as well as the timing and circumstances, are variable depending upon the specifics of your emergency department visit. If you don't have a primary care physician on staff, we will provide you with a referral. We always advise you to contact your personal physician following an emergency department visit to inform them of the circumstance of the visit and for follow-up with them and/or the need for any referrals to a consulting specialist. The emergency department will also refer you to a specialist when appropriate. This referral assures that you have the opportunity for followup care with a specialist. All of these measure are taken in an effort to provide you with optimal care, which includes your followup. Under all circumstances we always encourage you to contact your private physician who remains a resource for coordinating your care. When calling for followup care, please make the office aware that this follow-up is from your recent emergency room visit. If for any reason you are refused follow-up, please contact the [facility] emergency department at and ask to speak to the emergency department charge nurse. [facility] [address] [address] Strict pelvic rest with nothing in vagina until you're followed up in the clinic. Please call and schedule a follow-up appointment this week as discussed. Continue to use [id number] Tylenol and push hydration. Monitor the bleeding and return to ER as needed and as discussed
[2018-09-04] MEDS ORDERED: Nalbuphine 10 MG/1 ML Vial IM ONE (00:33)
[2018-09-04 01:43] VITALS: BP 123/75
== END 2018-09-04 01:35 | disposition home or self-care (01) ==
LOC: MW.ED 23:41
DX: O26.892 Other specified pregnancy related conditions, second trimester (principal); R10.2 Pelvic and perineal pain; O20.9 Hemorrhage in early pregnancy, unspecified; Z3A.19 19 weeks gestation of pregnancy
CPT/HCPCS: 96372; 99284; J2300; 99283